=== PATIENT | female | born 1985 | race African-American/Black ===

== ENCOUNTER 2021-07-20 09:30 | Emergency (ER) | payer OTHER ==
[~2021-07-20] VITALS: Ht 167.6 cm; Wt 81.2 kg
[2021-07-20 09:52] VITALS: BP 116/97
--- NOTE | 2021-07-20 10:32 | PHYS DOC ---
Past History Past Surgical History: Tubal ligation Alcohol Use: None General Adult EDM: Chief Complaint: COUGH HPI: HPI: Patient is a 36-year-old female who presents to the ER for a yellow productive cough, nasal congestion/drainage and shortness of breath. Patient is also reporting chest wall pain with cough and deep inspiration. She denies any loss of taste or smell, fevers, sick exposures. She is not vaccinated for COVID-19. She has no medical history. Patient's vital signs are stable and she is in no acute distress at this time. Review of Systems: Review of Systems: 14 body systems of the review of systems have been reviewed. See HPI for pertinent positive and negative responses, otherwise all other systems are negative, nonpertinent or noncontributory Allergies: Allergies: Allergies Coded Allergies Type Severity Reaction Last Updated Verified No Known Drug Allergies 07/20/21 No Physical Exam: PE: Constitutional: Well developed, well nourished, no acute distress, non-toxic appearance. [] HENT: Normocephalic, atraumatic, bilateral external ears normal, oropharynx moist, no oral exudates, nose normal. [] Eyes: PERRLA, EOMI, conjunctiva normal, no discharge. [] Neck: Normal range of motion, no tenderness, supple, no stridor. [] Cardiovascular:Heart rate regular rhythm, no murmur [] Lungs & Thorax: Bilateral breath sounds clear to auscultation [] Abdomen: Bowel sounds normal, soft, no tenderness, no masses, no pulsatile masses. [] Skin: Warm, dry, no erythema, no rash. [] Back: No tenderness, no CVA tenderness. [] Extremities: No tenderness, no cyanosis, no clubbing, ROM intact, no edema. [] Neurologic: Alert and oriented X 3, normal motor function, normal sensory function, no focal deficits noted. [] Psychologic: Affect normal, judgement normal, mood normal. [] Current Patient Data: Labs: Laboratory Tests Test 07/20/21 10:17 White Blood Count 13.3 x10^3/uL Red Blood Count 3.81 x10^6/uL Hemoglobin 10.9 g/dL Hematocrit 34.1 % Mean Corpuscular Volume 90 fL Mean Corpuscular Hemoglobin 29 pg Mean Corpuscular Hemoglobin Concent 32 g/dL Red Cell Distribution Width 14.2 % Platelet Count 367 x10^3/uL Neutrophils (%) (Auto) 70 % Lymphocytes (%) (Auto) 16 % Monocytes (%) (Auto) 11 % Eosinophils (%) (Auto) 2 % Basophils (%) (Auto) 1 % Neutrophils # (Auto) 9.3 x10^3uL Lymphocytes # (Auto) 2.1 x10^3/uL Monocytes # (Auto) 1.5 x10^3/uL Eosinophils # (Auto) 0.2 x10^3/uL Basophils # (Auto) 0.1 x10^3/uL Sodium Level 139 mmol/L Potassium Level 4.2 mmol/L Chloride Level 105 mmol/L Carbon Dioxide Level 28 mmol/L Anion Gap 6 Blood Urea Nitrogen 12 mg/dL Creatinine 0.5 mg/dL Estimated GFR (Cockcroft-Gault) 169.9 Glucose Level 95 mg/dL Calcium Level 8.5 mg/dL Troponin I Quantitative < 0.017 ng/mL Vital Signs: Vital Signs Date Time Temp Pulse Resp B/P (MAP) Pulse Ox O2 Delivery O2 Flow Rate FiO2 07/20/21 09:52 97.8 76 16 116/97 100 Room Air EKG: EKG: [] Radiology/Procedures: Radiology/Procedures: []PROCEDURE: PORTABLE CHEST 1V INDICATION: Reason: soa, cough, PUI / Spl. Instructions: / History: COMPARISON: None. FINDINGS: 2 view of chest obtained. There is a curvilinear metallic bar projecting over the mediastinum. This could be from jewelry in the region given that this was also seen on prior thoracic spine radiograph from July 2020. Mild haziness at the bilateral lung bases left greater than right without consolidation elsewhere in the lungs IMPRESSION: * Hazy opacity at left greater than right lung base. At least a portion of this is likely secondary to overlap of soft tissue structures but superimposed atelectasis or mild infiltrate from infectious etiology could have this appearance. Would correlate with symptoms. Electronically signed by: Roma Hammonds MD (07/20/2021 11:20 AM) [id number] DICTATED AND SIGNED BY: ROMA HAMMONDS MD DATE: 07/20/21 1117 CC: NELSON SANTIZO [employer]CR[employer]UD[employer]ER; PCP,NO ~MTH0 0 Heart Score: C/O Chest Pain: No Risk Factors: Risk Factors: DM, Current or recent (<one month) smoker, HTN, HLP, family history of CAD, obesity. Risk Scores: Score 0 - 3: 2.5% MACE over next 6 weeks - Discharge Home Score 4 - 6: 20.3% MACE over next 6 weeks - Admit for Clinical Observation Score 7 - 10: 72.7% MACE over next 6 weeks - Early Invasive Strategies Course & Med Decision Making: Course & Med Decision Making Pertinent Labs and Imaging studies reviewed. (See chart for details) [] Patient is a 36-year-old female being seen in the ER for cough, nasal c ongestion/drainage, shortness of breath and chest wall pain with cough/deep inspiration. Patient's vital signs are stable. She is not tachycardic or hypoxic. Work-up in the ER consisted of blood work, chest x-ray, Covid testing. Patient will be notified of Covid test results when they become available in approximately 2 days. Patient advised to self isolate until she receives these results. Chest x-ray showed atelectasis versus infiltrate to the left lung base greater than the right.. Blood work was unremarkable other than leukocytosis. It is likely that patient has a COVID-19 infection. Patient will be treated with an antibiotic. I discussed with patient all findings and diagnostic testing as well as the need to follow-up with PCP for further evaluation and treatment or return to the ER if any new or worsening symptoms. Strict return precautions were also discussed at length. Patient voiced understanding and agreement with the plan. Patient is hemodynamically stable at the time of disposition. Dragon Disclaimer: Dragon Disclaimer: This electronic medical record was generated, in whole or in part, using a voice recognition dictation system. Departure Departure: Impression: Primary Impression: Person under investigation for COVID-19 Additional Impression: Pneumonia Qualified Codes: J18.9 - Pneumonia, unspecified organism Disposition: HOME / SELF CARE / HOMELESS Condition: GOOD Referrals: PCP,LEW (PCP) Patient Instructions: Cough, Adult Additional Instructions: You were seen in the ER today for cough, shortness of breath, nasal congestion. The symptoms are consistent with a COVID-19 viral infection. You were tested in the ER today. You will be notified of those results when they become available in approximately 2 days. Please self isolate until you receive these results. Your chest x-ray showed possible pneumonia in your lung bases. You are being discharged home with an antibiotic to treat this. Please start and finish it completely. For your shortness of breath you are being discharged home with a inhaler. Please use this as directed for shortness of breath. For any pain or fevers you can take Tylenol/ibuprofen. For your cough you can take Delsym [id number]. Mucinex may help your nasal congestion. Increase your fluids. Please follow-up with your primary care provider tomorrow regarding your ER visit. If you develop worsening of your shortness of breath, chest pain, high fevers refractory to treatment, lightheadedness, intractable nausea/vomiting please return to the ER. EMERGENCY DEPARTMENT GENERAL DISCHARGE INSTRUCTIONS Thank you for coming to [facility] (ED) today and trusting us with you care. We trust that you had a positivie experience in our Emergency Department. If you wish to speak to the department management, you may call the director at [phone]. YOUR FOLLOW UP INSTRUCTIONS ARE FOLLOWS: 1. Do you have a private Doctor? If you do not have a private doctor, please ask for a resource list of physicians or clinics that may be able to assist you with follow up care. 2. The Emergency Physician has interpreted your x-rays. The X-Ray specialist will also review them. If there is a change in the findings, you will be notified in 48 hours when at all possible. 3. A lab test or culture has been done, your results will be reviewed and you will be notified if you need a change in treatment. ADDITIONAL INSTRUCTIONS AND INFORMATION: 1. Your care today has been supervised by a physician who is specially trained in emergency care. Many problems require more than one evaluation for a complete diagnosis and treatment. We recommend that you schedule your follow up appointment as recommended to ensure complete treatment of you illness or injury. If you are unable to obtain follow up care and continue to have a problem, or if your condition worsens, we recommend that you return to the ED. 2. We are not able to safely determine your condition over the phone nor are we able to give sound medical advice over the phone. For these safety reasons, if you call for medical advice we will ask you to come to the ED for further evaluation. 3. If you have any questions regarding these discharge instructions please call the ED at [phone]. SAFETY INFORMATION: In the interest of safety, wellness, and injury prevention; we encourage you to wear your sealbelt, if you smoke; quite smoking, and we encourage family to use a protective helmet for bicycling and other sporting events that present an increased risk for head injury. IF YOUR SYMPTOMS WORSEN OR NEW SYMPTOMS DEVELOP, OR YOU HAVE CONCERNS ABOUT YOUR CONDITION; OR IF YOUR CONDITION WORSENS WHILE YOU ARE WAITING FOR YOUR FOLLOW UP APPOINTMENT; EITHER CONTACT YOUR PRIMARY CARE DOCTOR, THE PHYSICIAN WHOSE NAME AND NUMBER YOU WERE GIVEN, OR RETURN TO THE ED IMMEDIATELY. Scripts Albuterol Sulfate (PROAIR HFA INHALER) 8.5 Gm Hfa.aer.ad 2 PUFF IH PRN Q4-6HRS PRN for wheezing for 21 Days, #1 INHALER 0 Refills as needed for wheezing Prov: NELSON SANTIZO APRN 07/20/21 Azithromycin (AZITHROMYCIN TABLET) 250 Mg Tablet 1 PKG PO UD for pneumonia for 5 Days, #6 TAB 0 Refills 2 the first day followed by 1 for days 2-5 Prov: NELSON SANTIZO APRN 07/20/21 NELSON SANTIZO APRN Jul 20, 2021 10:32
[2021-07-20 11:00] LABS: CALCIUM 8.5 mg/dL (8.5-10.1); CREATININE 0.5 mg/dL (0.6-1.0); GFR 169.9; POTASSIUM 4.2 mmol/L (3.5-5.1)
[2021-07-20 11:01] LABS: BASO # 0.1 x10^3/uL (0.0-0.2); BASO % 1 % (0-3); EOS # 0.2 x10^3/uL (0.0-0.7); EOS % 2 % (0-3); HEMATOCRIT 34.1 % (36.0-47.0); HEMOGLOBIN 10.9 g/dL (12.0-15.5); LYMPH # 2.1 x10^3/uL (1.0-4.8); LYMPH % 16 % (24-48); MEAN CORPUSCULAR HEMOGLOBIN 29 pg (25-35); MEAN CORPUSCULAR HGB CONC 32 g/dL (31-37); MEAN CORPUSCULAR VOLUME 90 fL (79-100); MONO # 1.5 x10^3/uL (0.0-1.1); MONO % 11 % (0-9); NEUT # 9.3 x10^3uL (1.8-7.7); NEUT % 70 % (31-73); PLATELET COUNT 367 x10^3/uL (140-400); RED BLOOD COUNT 3.81 x10^6/uL (3.50-5.40); RED CELL DISTRIBUTION WIDTH 14.2 % (11.5-14.5); WHITE BLOOD COUNT 13.3 x10^3/uL (4.0-11.0)
--- NOTE | 2021-07-20 11:22 | RAD ---
INDICATION: Reason: soa, cough, PUI / Spl. Instructions: / History: COMPARISON: None. FINDINGS: 2 view of chest obtained. There is a curvilinear metallic bar projecting over the mediastinum. This could be from jewelry in th e region given that this was also seen on prior thoracic spine radiograph from July 2020. Mild haziness at the bilateral lung bases left greater than right without consolidation elsewhere in the lungs IMPRESSION: * Hazy opacity at left greater than right lung base. At least a portion of this is likely secondary to overlap of soft tissue structures but superimposed atelectasis or mild infiltrate from infectious etiology could have this appearance. Would correlate with symptoms. Electronically signed by: Eliu Hammonds MD (07/20/2021 11:20 AM) [id number]
[2021-07-20] MEDS ORDERED: AZIT250T6 PO (11:35)
[2021-07-20] MEDS ORDERED: ALBU2.5V8 IH (11:35)
== END 2021-07-20 12:00 | disposition home or self-care (01) ==
LOC: ER 09:30
DX: J18.9 Pneumonia, unspecified organism (principal); Z20.822 Contact with and (suspected) exposure to COVID-19; Z98.51 Tubal ligation status
CPT/HCPCS: 71045; 80048; 84484; 85025; 99284; C9803; U0003